=== PATIENT | male | born 1975 | race Caucasian/White ===

== ENCOUNTER 2017-03-07 16:41 | Emergency (ER) | payer MEDICAID ==
[2017-03-07 17:03] VITALS: BP 127/71
== END 2017-03-07 18:22 | disposition home or self-care (01) ==
LOC: ED 16:41
DX: S01.81XA Laceration without foreign body of other part of head, initial encounter (principal); W21.19XA Struck by other bat, racquet or club, initial encounter; Y93.89 Activity, other specified; Y99.8 Other external cause status; Y92.89 Other specified places as the place of occurrence of the external cause
CPT/HCPCS: J2001